=== PATIENT | female | born 1975 | race Caucasian/White ===

== ENCOUNTER 2020-06-08 12:40 | Emergency (ER) | payer OTHER | END 2020-06-08 16:52 | disposition home or self-care (01) | LOC: JVIRT 12:40 | DX: U07.1 COVID-19 (principal) | CPT/HCPCS: C9803; Q3014-GT; U0003 ==

== ENCOUNTER 2021-05-27 08:52 | Emergency (ER) | payer OTHER ==
[2021-05-27 08:56] VITALS: BP 125/88; PULSE 85; TEMP 98.9; BMI 28.8
[2021-05-27] MEDS ORDERED: IBUPROFEN 600 MG TABLET (FP) PO ONE ×2 (09:00→09:07)
[2021-05-27] MEDS ORDERED: LIDOCAINE HCL 1%, 10 MG/ML (50 mL VIAL) SQ ONE (09:01)
[2021-05-27] MEDS ORDERED: LIDOCAINE HCL 1%, 10 MG/ML (20ML VIAL) ONE (09:19)
== END 2021-05-27 10:22 | disposition home or self-care (01) ==
LOC: FER 08:52
PROC: 0RSXXZZ Reposition Left Finger Phalangeal Joint, External Approach (ICD-10-PCS; principal; 2021-05-27)
PROC: 2W3KX1Z Immobilization of Left Finger using Splint (ICD-10-PCS; 2021-05-27)
DX: S63.251A Unspecified dislocation of left index finger, initial encounter (principal); W23.0XXA Caught, crushed, jammed, or pinched between moving objects, initial encounter
CPT/HCPCS: 73140-TC-LT-FY; 99284-25